=== PATIENT | female | born 1950 | race Caucasian/White ===

== ENCOUNTER 2017-04-19 18:02 | Emergency (ER) | payer MEDICARE ==
[~2017-04-19] VITALS: Ht 165.1 cm; Wt 70.0 kg
[2017-04-19 18:04] VITALS: BP_SYST 138; BP_SYST 150; BP_DIAS 55; BP_DIAS 65; PULSE 69; RESP 20; TEMP 98.5; O2SAT 95
--- NOTE | 2017-04-19 18:09 | PD ---
Physical Exam Time Seen by Provider: 18:08 Narrative 67 y/o female with diarrhea, nausea, belching, abd cramps since 04/05. Recent stool cx which she reports was negative at outside ED but unable to perform Cdif test. Recently tx with azithromycin and levaquin for URI symptoms. Vital signs reviewed. Seen at triage desk. Awaiting bed placement. Data Data Last Documented VS Vital Signs Date Time Temp Pulse Resp B/P Pulse Ox O2 Delivery O2 Flow Rate FiO2 04/19/17 18:04 98.5 69 20 138/55 95 Orders Complete Blood Count With Diff (04/19/17 18:10) Comprehensive Metabolic Panel (04/19/17 18:10) Urinalysis - C+S If Indicated (04/19/17 18:10) Lipase (04/19/17 18:10) C Diff Toxin Pcr (04/19/17 18:10) Enteric Path (Stool) (04/19/17 18:10) Ct Abd/Pel W Iv Contrast(Rout) (04/19/17 20:23) B-Type Natriuretic Peptide (04/19/17 20:23) Us Leg Venous Doppler Bilat (04/19/17 20:23) Iv Access Insert/Monitor (04/19/17 20:24) MDM Medical Record Reviewed: Yes Supervised Visit with KAROLINA: Juan Leonardo Apr 19, 2017 18:09
--- NOTE | 2017-04-19 20:37 | PD ---
HPI Chief Complaint: GI Complaint Time Seen by Provider: 20:15 Travel History International Travel<30 days: No Contact w/Intl Traveler<30days: No Traveled to known affect area: No History of Present Illness HPI 67-year-old female presents for evaluation of intermittent abdominal pain, diarrhea. She reports that in early March she was placed on azithromycin and then Levaquin to treat bronchitis. She started having diarrhea on April 05. She had 2-4 days of loose watery stools which then resolved. She reports that Imodium helped. She started having these symptoms again 1 week ago and she was seen at an emergency room. She reports that blood work was performed as well as some sort of stool test. She was told that everything looked normal. She points at a C. difficile test was not performed because her stool was not watery enough. She reports that the symptoms again resolved but then over the past 2 days she has had diarrhea again. She reports several episodes of watery stool yesterday. Today she has had soft partially formed stools. She is continue to have abdominal cramping sensation, bloating sensation. She also reports that over the past 4-5 days she has had swelling in both legs. She does report that she recently flew here from [place] 4 days ago. She denies any chest pain or shortness of breath, fevers, flank pain, dysuria. She reports an ejection fraction of 39%. She has no other complaints. PFSH Past Medical History Heart Rhythm Problems: Yes (lt vent sys funct prob ?chf?) Cardiovascular Problems: Yes (LBBB/ef 39%) Diabetes: Yes Patient Takes Glucophage: No Gastrointestinal Disorders: Yes Medical other: Yes (HYPERTHYROID) Tetanus Vaccination: > 5 Years Influenza Vaccination: No ?: Not Social History Alcohol Use: Yes ([facility]) Tobacco Use: No Substance Use: No Allergies-Medications (Allergen,Severity, Reaction): Coded Allergies: Augmentin (Verified Allergy, Unknown, 04/19/17) Bactrim (Verified Allergy, Unknown, 04/19/17) Lamictal (Verified Allergy, Unknown, 04/19/17) Reported Meds & Prescriptions Reported Meds & Active Scripts Active Flagyl (Metronidazole) 500 Mg Tab 500 Mg PO BID 7 Days Cipro (Ciprofloxacin HCl) 500 Mg Tab 500 Mg PO BID 7 Days Reported Remeron (Mirtazapine) 15 Mg Tab 15 Mg PO HS Simvastatin 20 Mg Tab 20 Mg PO HS Gabapentin 100 Mg Cap 100 Mg PO TID Gabapentin 800 Mg Tab 800 Mg PO TID Topamax (Topiramate) 100 Mg Tab 100 Mg PO BID Klonopin (Clonazepam) 0.5 Mg Tab 0.5 Mg PO DAILY Zoloft (Sertraline HCl) 100 Mg Tab 100 Mg PO DAILY Lisinopril 10 Mg Tab 10 Mg PO DAILY Emma Aspirin EC Low Dose (Aspirin) 81 Mg Tabdr 81 Mg PO DAILY Protonix (Pantoprazole Sodium) 40 Mg Tab 40 Mg PO DAILY Cytomel (Liothyronine Sodium) 5 Mcg Tablet 5 Mg PO BID Synthroid (Levothyroxine Sodium) 88 Mcg Tab 88 Mcg PO DAILY Coreg (Carvedilol) 25 Mg Tab 25 Mg PO BID Review of Systems Except as stated in HPI: all other systems reviewed are Neg Physical Exam Narrative GENERAL: Pleasant well-developed well-nourished female in no acute distress SKIN: Warm and dry. HEAD: Atraumatic. Normocephalic. EYES: Pupils equal and round. No scleral icterus. No injection or drainage. ENT: No nasal bleeding or discharge. Mucous membranes pink and moist. NECK: Trachea midline. No JVD. CARDIOVASCULAR: Regular rate and rhythm. No murmur appreciated. RESPIRATORY: No accessory muscle use. Clear to auscultation. Breath sounds equal bilaterally. GASTROINTESTINAL: Abdomen soft, mild tenderness to palpation lower quadrants of the abdomen without guarding. No CVA tenderness. MUSCULOSKELETAL: No obvious deformities. Nonpitting lower extremity edema. Negative Homans bilaterally. NEUROLOGICAL: Awake and alert. No obvious cranial nerve deficits. Motor grossly within normal limits. Normal speech. PSYCHIATRIC: Appropriate mood and affect; insight and judgment normal. Data Data Last Documented VS Vital Signs Date Time Temp Pulse Resp B/P Pulse Ox O2 Delivery O2 Flow Rate FiO2 04/19/17 18:04 98.5 69 20 138/55 95 Orders Complete Blood Count With Diff (04/19/17 18:10) Comprehensive Metabolic Panel (04/19/17 18:10) Urinalysis - C+S If Indicated (04/19/17 18:10) Lipase (04/19/17 18:10) C Diff Toxin Pcr (04/19/17 18:10) Enteric Path (Stool) (04/19/17 18:10) B-Type Natriuretic Peptide (04/19/17 20:23) Us Leg Venous Doppler Bilat (04/19/17 20:23) Iv Access Insert/Monitor (04/19/17 20:24) Phosphorus (Po4) (04/19/17 20:58) Troponin I (04/19/17 20:58) Creatine Kinase (Cpk) (04/19/17 20:58) Chest, Single Ap (04/19/17 ) Electrocardiogram (04/19/17 ) Sodium Chlor 0.9% 1000 Ml Inj (Ns 1000 M (04/19/17 22:49) Ondansetron Inj (Zofran Inj) (04/19/17 23:00) Acetylcysteine 20% Liq (Mucomyst 20% Liq (04/19/17 23:00) Cta Thor Abd Aorta W Iv C W3d (04/19/17 ) Stool Ova And Parasite Screen (04/19/17 22:55) Labs Laboratory Tests Test 04/19/17 04/19/17 04/19/17 20:10 21:33 21:35 Stool C. difficile Toxin (PCR) NEGATIVE Stl C. difficile Toxin PRESUMPTIVE Epiderm 027 NEGATIVE White Blood Count 7.7 TH/MM3 Red Blood Count 4.25 MIL/MM3 Hemoglobin 13.4 GM/DL Hematocrit 39.9 % Mean Corpuscular Volume 93.8 FL Mean Corpuscular Hemoglobin 31.5 PG Mean Corpuscular Hemoglobin 33.6 % Concent Red Cell Distribution Width 13.2 % Platelet Count 157 TH/MM3 Mean Platelet Volume 10.1 FL Neutrophils (%) (Auto) 59.6 % Lymphocytes (%) (Auto) 31.4 % Monocytes (%) (Auto) 7.1 % Eosinophils (%) (Auto) 1.6 % Basophils (%) (Auto) 0.3 % Neutrophils # (Auto) 4.6 TH/MM3 Lymphocytes # (Auto) 2.4 TH/MM3 Monocytes # (Auto) 0.5 TH/MM3 Eosinophils # (Auto) 0.1 TH/MM3 Basophils # (Auto) 0.0 TH/MM3 CBC Comment DIFF FINAL Differential Comment Urine Color LIGHT-YELLOW Urine Turbidity CLEAR Urine pH 5.5 Urine Specific [place] 1.010 Urine Protein NEG mg/dL Urine Glucose (UA) NEG mg/dL Urine Ketones NEG mg/dL Urine Occult Blood NEG Urine Nitrite NEG Urine Bilirubin NEG Urine Urobilinogen LESS THAN 2.0 MG/DL Urine Leukocyte Esterase NEG Urine RBC LESS THAN 1 /hpf Urine WBC LESS THAN 1 /hpf Urine Squamous Epithelial 1 /hpf Cells Microscopic Urinalysis Comment CULT NOT INDICATED Sodium Level 143 MEQ/L Potassium Level 3.5 MEQ/L Chloride Level 111 MEQ/L Carbon Dioxide Level 26.7 MEQ/L Anion Gap 5 MEQ/L Blood Urea Nitrogen 23 MG/DL Creatinine 1.00 MG/DL Estimat Glomerular Filtration 56 ML/MIN Rate Random Glucose 80 MG/DL Calcium Level 8.1 MG/DL Total Bilirubin 0.4 MG/DL Aspartate Amino Transf 16 U/L (AST/SGOT) Alanine Aminotransferase 20 U/L (ALT/SGPT) Alkaline Phosphatase 50 U/L Total Protein 7.9 GM/DL Albumin 3.9 GM/DL Lipase 269 U/L Phosphorus Level 3.2 MG/DL Total Creatine Kinase 102 U/L Troponin I LESS THAN 0.02 NG/ML B-Type Natriuretic Peptide 38 PG/ML MDM Medical Decision Making Medical Screen Exam Complete: Yes Emergency Medical Condition: Yes Medical Record Reviewed: Yes Interpretation(s) EKG left bundle branch block, the patient has a history of left bundle branch block. Differential Diagnosis C. difficile, gastroenteritis, colitis, diverticulitis, medication induced diarrhea, IBD, IBS Narrative Course 67-year-old female who has been having intermittent abdominal cramping and diarrhea symptoms for the past 2 weeks. She was recently treated with azithromycin and Levaquin for upper respiratory infection. In addition she has had lower extremity edema for the past 4-5 days, recently flew here from [place]. On examination she has mild tenderness to palpation in the lower quadrants of the abdomen. She has nonpitting lower extremity edema bilaterally. She does note a history of having an ejection fraction of 39%. Plan is for basic lab work, CT of the abdomen and pelvis, ultrasound of the lower extremities. We will obtain stool culture and C. difficile PCR testing. The patient reports that she is declining IV contrast study and would prefer noncontrast study. I explained that with her diarrhea and abdominal cramping the concern would be for colitis or diverticulitis and ultimately the patient would receive IV contrast for this however the patient is once again declining. Her relative who is a physician is also requesting additional testing including phosphorus, troponin, CK-MB, chest x-ray, EKG. The Patient reiterates that she is having no chest pain or shortness of breath and her chief complaint is lower abdominal cramping and intermittent diarrhea. Laboratory is unremarkable, C. difficile PCR is negative. Chest x-ray reveals an abnormal masslike fullness in the left aorticopulmonary window region concerning for mass or adenopathy. Radiologist recommends a chest CT with contrast. Given the concern for aortic aneurysm, CT aorta of the thorax and abdomen has been ordered. Discussed with the patient who was eventually agreeable after her cousin who is a [employer] blind cleaner and repairer insisted on the administration of precontrast IV fluids, Mucomyst. She was given Zofran as well. CONCLUSION: Normal examination. The left pulmonary artery is enlarged often a sign of pulmonic stenosis. CT aorta reveals normal examination. The left pulmonary arteries enlarged often a sign of pulmonic stenosis. The patient was given a copy of her CT report to follow-up with her primary care physician upon returning home. Pending stool culture result she is being discharged with Cipro and Flagyl. She has also recently started using [id number] probiotics. Diagnosis Primary Impression: Diarrhea Qualified Code: R19.7 - Diarrhea, unspecified type Additional Instructions: Medication as prescribed. Probiotics. Follow-up with primary care physician. Return for any emergent medical conditions. Med/Other Pt SpecificInfo: Prescription(s) given Scripts Metronidazole (Flagyl)500 Mg [id number] Mg PO BID 7 Days Ref 0 Prov:Destiney Cruz MD 04/20/17 Ciprofloxacin (Cipro)500 Mg [id number] Mg PO BID 7 Days Ref 0 Prov:Destiney Cruz MD 04/20/17 Disposition: 01 DISCHARGE HOME Condition: Stable Juan Hoffman Apr 19, 2017 20:37
[2017-04-19] MEDS ORDERED: CYTO5TAB3 PO (20:47)
[2017-04-19] MEDS ORDERED: CORE25TA PO (20:47)
[2017-04-19] MEDS ORDERED: TOPA100T11 PO (20:47)
[2017-04-19] MEDS ORDERED: LISI10TA3 PO (20:47)
[2017-04-19] MEDS ORDERED: PROT40TA PO (20:47)
[2017-04-19] MEDS ORDERED: SYNT88TA PO (20:47)
[2017-04-19] MEDS ORDERED: GABA100C4 PO (20:47)
[2017-04-19] MEDS ORDERED: ASPI1TAB73 PO (20:47)
[2017-04-19] MEDS ORDERED: GABA800T PO (20:47)
[2017-04-19] MEDS ORDERED: CLON.5 PO (20:47)
[2017-04-19] MEDS ORDERED: ZOLO100T PO (20:47)
[2017-04-19] MEDS ORDERED: REME15TA PO (20:51)
[2017-04-19] MEDS ORDERED: SIMV20TA PO (20:51)
[2017-04-19 21:23] LABS: C. DIFF EPI 027 PRESUMPTIVE NEGATIVE (NEGATIVE); C. DIFF TOXIN PCR NEGATIVE (NEGATIVE)
--- NOTE | 2017-04-19 21:25 | RADRPT ---
EXAM DATE/TIME: 04/19/2017 20:53 [facility] COMPARISON: No previous studies available for comparison. INDICATIONS : Lower middle chest/abdominal pain. MEDICAL HISTORY : Carcinoma, breast. SURGICAL HISTORY : Mastectomy, right. ENCOUNTER: Initial ACUITY: 2 weeks PAIN SCORE: 5/10 LOCATION: Bilateral chest FINDINGS: A single view of the chest demonstrates the lungs to be symmetrically aerated without evidence of mas s, infiltrate or effusion. There is abnormal masslike fullness in the aortopulmonary window region. T here are multiple surgical clips and dixie in the right axilla and projected over the right lung ba se. Osseous structures are intact. CONCLUSION: Abnormal masslike fullness in the left aortopulmonary window region concern for mass or adenopathy. A chest CT with contrast is recommended for further evaluation. Pedro Wang MD on April 19, 2017 at 21:22 Board Certified Radiologist. This report was verified electronically.
[2017-04-19 22:01] LABS: BLOOD, URINE NEG (NEG); GLUCOSE,URINE NEG (NEG); KETONE, URINE NEG (NEG); NITRITE,URINE NEG (NEG); PH, URINE 5.5 (5.0-8.5); SQUAMOUS EPITHELIAL CELL URINE 1 /hpf (0-5); URINE COLOR LIGHT-YELLOW (YELLW/STRAW)
[2017-04-19 22:02] LABS: COMMENT (UR) CULT NOT INDICATED; CULTURE IF INDICATED CULT NOT INDICATED
[2017-04-19 22:05] LABS: AUTOMATED NEUTROPHIL # 4.6 TH/MM3 (1.8-7.7); BASOPHIL % 0.3 % (0.0-2.0); EOSINOPHIL # 0.1 TH/MM3 (0-0.4); EOSINOPHIL % 1.6 % (0.0-4.0); HEMATOCRIT 39.9 % (35.0-46.0); HEMO FLAGS DIFF FINAL; LYMPH % 31.4 % (9.0-44.0); LYMPHOCYTE # 2.4 TH/MM3 (1.0-4.8); MEAN CELL VOLUME 93.8 FL (80.0-100.0); MEAN CORPUSCULAR HEMOGLOBIN 31.5 PG (27.0-34.0); MEAN CORPUSCULAR HGB CONC 33.6 % (32.0-36.0); MONO % 7.1 % (0.0-8.0); NEUT % 59.6 % (16.0-70.0); PLATELET COUNT 157 TH/MM3 (150-450); RED BLOOD COUNT 4.25 MIL/MM3 (4.00-5.30); RED CELL DISTRIBUTION WIDTH 13.2 % (11.6-17.2); WHITE BLOOD COUNT 7.7 TH/MM3 (4.0-11.0)
[2017-04-19 22:11] LABS: CREATINE KINASE 102 U/L (26-192)
--- NOTE | 2017-04-19 22:15 | RADRPT ---
EXAM DATE/TIME: 04/19/2017 21:36 [facility] COMPARISON: No previous studies available for comparison. INDICATIONS : Bilateral leg swelling. MEDICAL HISTORY : Hypertension. Hyperthyroidism. Gastroesophageal reflux disease. Hyperlipidemia. Diabetes. Right breas t cancer. Cardiac disfunction. SURGICAL HISTORY : None. ENCOUNTER: Initial ACUITY: 4 - 6 days PAIN SCORE: 4/10 LOCATION: Bilateral legs. TECHNIQUE: Venous ultrasound of the left and right leg was performed from the inguinal ligament to the proximal calf. Real-time, color Doppler and spectral tracing, compression and augmentation techniques were us ed. FINDINGS: RIGHT LEG: There is normal compressibility of the deep venous system from the inguinal region to the proximal ca lf. No echogenic clot is seen in the lumen of the common femoral, femoral, popliteal, and posterior tibial veins. There is a normal response of the venous system to proximal and distal augmentation an d respiration. LEFT LEG: There is normal compressibility of the deep venous system from the inguinal region to the proximal ca lf. No echogenic clot is seen in the lumen of the common femoral, femoral, popliteal, and posterior tibial veins. There is a normal response of the venous system to proximal and distal augmentation an d respiration. CONCLUSION: Negative exam with no evidence of deep venous thrombosis. Pedro Wang MD on April 19, 2017 at 22:12 Board Certified Radiologist. This report was verified electronically.
[2017-04-19 22:31] LABS: ALT (GPT) 20 U/L (10-53); ANION GAP 5 MEQ/L (5-15); AST (GOT) 16 U/L (15-37); BICARBONATE 26.7 MEQ/L (21.0-32.0); BLOOD UREA NITROGEN 23 MG/DL (7-18); CHLORIDE 111 MEQ/L (98-107); GLOMERULAR FILTRATION RATE 56 ML/MIN (>89); POTASSIUM 3.5 MEQ/L (3.5-5.1); SODIUM (NA) 143 MEQ/L (136-145)
[2017-04-19 22:34] LABS: ALKALINE PHOSPHATASE 50 U/L (45-117); TOTAL BILIRUBIN ADULT 0.4 MG/DL (0.2-1.0)
[2017-04-19] MEDS ORDERED: SODIUM CHLOR 0.9% 1000 ML INJ 1,000 ML IV SCH (22:49)
--- NOTE | 2017-04-19 22:53 | PD ---
Data Data Last Documented VS Vital Signs Date Time Temp Pulse Resp B/P Pulse Ox O2 Delivery O2 Flow Rate FiO2 04/19/17 18:04 98.5 69 20 138/55 95 Orders Complete Blood Count With Diff (04/19/17 18:10) Comprehensive Metabolic Panel (04/19/17 18:10) Urinalysis - C+S If Indicated (04/19/17 18:10) Lipase (04/19/17 18:10) C Diff Toxin Pcr (04/19/17 18:10) Enteric Path (Stool) (04/19/17 18:10) B-Type Natriuretic Peptide (04/19/17 20:23) Us Leg Venous Doppler Bilat (04/19/17 20:23) Iv Access Insert/Monitor (04/19/17 20:24) Phosphorus (Po4) (04/19/17 20:58) Troponin I (04/19/17 20:58) Creatine Kinase (Cpk) (04/19/17 20:58) Chest, Single Ap (04/19/17 ) Electrocardiogram (04/19/17 ) Sodium Chlor 0.9% 1000 Ml Inj (Ns 1000 M (04/19/17 22:49) Ondansetron Inj (Zofran Inj) (04/19/17 23:00) Acetylcysteine 20% Liq (Mucomyst 20% Liq (04/19/17 23:00) Cta Thor Abd Aorta W Iv C W3d (04/19/17 ) Stool Ova And Parasite Screen (04/19/17 22:55) Labs Laboratory Tests Test 04/19/17 04/19/17 04/19/17 20:10 21:33 21:35 Stool C. difficile Toxin (PCR) NEGATIVE Stl C. difficile Toxin PRESUMPTIVE Epiderm 027 NEGATIVE White Blood Count 7.7 TH/MM3 Red Blood Count 4.25 MIL/MM3 Hemoglobin 13.4 GM/DL Hematocrit 39.9 % Mean Corpuscular Volume 93.8 FL Mean Corpuscular Hemoglobin 31.5 PG Mean Corpuscular Hemoglobin 33.6 % Concent Red Cell Distribution Width 13.2 % Platelet Count 157 TH/MM3 Mean Platelet Volume 10.1 FL Neutrophils (%) (Auto) 59.6 % Lymphocytes (%) (Auto) 31.4 % Monocytes (%) (Auto) 7.1 % Eosinophils (%) (Auto) 1.6 % Basophils (%) (Auto) 0.3 % Neutrophils # (Auto) 4.6 TH/MM3 Lymphocytes # (Auto) 2.4 TH/MM3 Monocytes # (Auto) 0.5 TH/MM3 Eosinophils # (Auto) 0.1 TH/MM3 Basophils # (Auto) 0.0 TH/MM3 CBC Comment DIFF FINAL Differential Comment Urine Color LIGHT-YELLOW Urine Turbidity CLEAR Urine pH 5.5 Urine Specific [place] 1.010 Urine Protein NEG mg/dL Urine Glucose (UA) NEG mg/dL Urine Ketones NEG mg/dL Urine Occult Blood NEG Urine Nitrite NEG Urine Bilirubin NEG Urine Urobilinogen LESS THAN 2.0 MG/DL Urine Leukocyte Esterase NEG Urine RBC LESS THAN 1 /hpf Urine WBC LESS THAN 1 /hpf Urine Squamous Epithelial 1 /hpf Cells Microscopic Urinalysis Comment CULT NOT INDICATED Sodium Level 143 MEQ/L Potassium Level 3.5 MEQ/L Chloride Level 111 MEQ/L Carbon Dioxide Level 26.7 MEQ/L Anion Gap 5 MEQ/L Blood Urea Nitrogen 23 MG/DL Creatinine 1.00 MG/DL Estimat Glomerular Filtration 56 ML/MIN Rate Random Glucose 80 MG/DL Calcium Level 8.1 MG/DL Total Bilirubin 0.4 MG/DL Aspartate Amino Transf 16 U/L (AST/SGOT) Alanine Aminotransferase 20 U/L (ALT/SGPT) Alkaline Phosphatase 50 U/L Total Protein 7.9 GM/DL Albumin 3.9 GM/DL Lipase 269 U/L Phosphorus Level 3.2 MG/DL Total Creatine Kinase 102 U/L Troponin I LESS THAN 0.02 NG/ML B-Type Natriuretic Peptide 38 PG/ML [facility] Supervised Visit with KAROLINA: Yes Narrative Course I, Dr. Laughlin, have reviewed the advance practice practitioner's documentation and am in agreement, met with the patient face to face, made the diagnosis, and the medical decision making was done by me. *My assessment and Findings: 67-year-old female presents emergency Department with complaints of abdominal cramping and diarrhea. Apparently this all started after the patient took some azithromycin and Levaquin for bronchitis a few weeks ago. The patient initially being worked up by Juan BELLA, he discussed the case with me and I agreed with the workup including basic labs stool studies as well as a CAT scan of her abdomen given her age need to rule out more concerning etiology. Patient is also been discussing with her friend who apparently is a med peds in [place], he requested the patient receive a chest x-ray as well as a troponin and EKG, when asked the patient why she didn't know and stated that she was not having any symptoms above the diaphragm. These tests were ordered by Juan Hoffman, there were notable for a mass in the left hilum , given its appearance and location concerning could be for aortic pathology. I had strongly recommended to the patient that she had a CT aortogram given this differential, initially she is highly against the idea because her med peds friend states that contrast can her kidneys. Her creatinine is completely benign at this point. Given recent data I think that the risk of her kidneys are much less then an undiagnosed lymphoma or aortic pathology. I' ve conveyed this to him over the phone and initially he is reluctant however ultimately he is agreeable for a CT contrast study after the patient receives fluid and Mucomyst. I discussed with him over the phone that I don't think Mucomyst be of benefit but I would be happy to order a dose. Ultimately we have agreed on this treatment course. The patient possibly will need premedication with antiemetics. Disposition pending imaging studies. Chidi Laughlin MD Apr 19, 2017 22:53
[2017-04-19] MEDS ORDERED: ONDANSETRON HCL 4 MG/2 ML VIAL IV PUSH ONE (23:00)
[2017-04-19] MEDS ORDERED: ACETYLCYSTEINE 20% 6,000 MG/30 ML ORAL SOLN VIAL PO ONE (23:00)
[2017-04-20] MEDS ORDERED: IOHEXOL 350 MG/ML 10 ML VIAL (for RAD DIAG) IV ONE (00:12)
--- NOTE | 2017-04-20 01:00 | RADRPT ---
EXAM DATE/TIME: 04/20/2017 00:12 [facility] COMPARISON: No previous studies available for comparison. INDICATIONS : Abnormal chest x-ray. IV CONTRAST: 100 cc Omnipaque 350 (iohexol) IV RADIATION DOSE: 11.56 CTDIvol (mGy) MEDICAL HISTORY : Gastroesophageal reflux disease. Hypertension. Diabetes mellitus type 2.Cardiovascular disease SURGICAL HISTORY : None. ENCOUNTER: Initial ACUITY: 1 day PAIN SCALE: 5/10 LOCATION: Bilateral lower quadrant TECHNIQUE: Volumetric scanning was performed using a multi-row detector CT scanner. The data was post processed with a variety of visualization algorithms including full volume maximum intensity projection, multi -planar sliding thin slab reformation, curved planar reformation, and surface rendering techniques. Using automated exposure control and adjustment of the mA and/or kV according to patient size, radiat ion dose was kept as low as reasonably achievable to obtain optimal diagnostic quality images. DICOM format image data is available electronically for review and comparison. FINDINGS: LUNGS: There is no consolidation or pneumothorax. No concerning pulmonary nodule is visualized. No pleural fluid is present. MEDIASTINUM: The left pulmonary artery is enlarged often a sign of pulmonic stenosis . No abnormally enlarged lymp h nodes by CT criteria. No axillary or hilar abnormalities are identified. ABDOMEN: The liver and spleen are free of focal defects. The gallbladder and pancreas demonstrate no abnormali ty. The adrenal glands are normal. The kidneys demonstrate no evidence of solid renal mass or hydrone phrosis. No free fluid or abdominal masses are identified. No para-aortic adenopathy is seen. PELVIS: No evidence of free fluid or pelvic mass. No abnormally enlarged inguinal or retroperitoneal lymph no dylan are present. The bladder is unremarkable. THORACIC AORTA: The thoracic aortic root is normal with normal branching of the great vessels. There is no evidence of aneurysm or dissection. ABDOMINAL AORTA: The aorta is normal in caliber without aneurysm or dissection. The renal arteries are patent bilater ally. The proximal celiac and superior mesenteric arteries are patent and normal in diameter. PELVIC VESSELS: The internal iliac and external iliac vessels are patent without aneurysm or stenosis. CONCLUSION: Normal examination. The left pulmonary artery is enlarged often a sign of pulmonic stenosis. Puneet Henry MD on April 20, 2017 at 0:56 Board Certified Radiologist. This report was verified electronically.
[2017-04-20] MEDS ORDERED: METR-1 PO (01:13)
[2017-04-20] MEDS ORDERED: CIPR-9 PO (01:13)
--- NOTE | 2017-04-20 10:06 | EKG ---
Date Performed: 04/19/2017 Time Performed: 21:46:04 PTAGE: 67 years EKG: SINUS BRADYCARDIA LEFT BUNDLE BRANCH BLOCK ABNORMAL ECG NO PREVIOUS TRACING DOCTOR: Vern Sánchez Interpretating Date/Time 04/20/2017 10:05:22
== END 2017-04-20 02:15 | disposition home or self-care (01) ==
LOC: NEPD 18:02
DX: R19.7 Diarrhea, unspecified (principal); R10.9 Unspecified abdominal pain; I44.7 Left bundle-branch block, unspecified; M79.89 Other specified soft tissue disorders; E11.9 Type 2 diabetes mellitus without complications; E05.90 Thyrotoxicosis, unspecified without thyrotoxic crisis or storm; R94.31 Abnormal electrocardiogram [ECG] [EKG]; Z79.899 Other long term (current) drug therapy; Z79.82 Long term (current) use of aspirin
CPT/HCPCS: 71010; 71275; 74174; 80053; 81001; 82550; 83690; 83880; 84100; 84484; 85025; 87328; 87329; 87493; 87506; 93005; 93970; 96361; 96374; 99285; J2405; J7030; Q9967